=== PATIENT | male | born 1930 | race Caucasian/White ===

== ENCOUNTER 2016-08-01 10:23 | Outpatient (CLI) | payer MEDICARE ==
[2016-08-01 12:51] LABS: Blood, Urine Trace (Negative); Glucose, Urine (Dipstick) Negative (Negative); Ketone, Urine Negative (Negative); Nitrite Negative (Negative); Protein, Urine (Dipstick) Negative (Neg-Trace)
[2016-08-01 12:54] LABS: Bilirubin Small (Negative)
[2016-08-01 13:00] LABS: RBC/HPF 0-3 HPF (0-3); WBC/HPF None Seen HPF (0-3)
[2016-08-01 13:01] LABS: Bacteria/HPF Rare-Few HPF (None Seen)
[2016-08-01 13:34] LABS: ALT (SGPT) 10 U/L (0-55); AST (SGOT) 22 U/L (5-34); Alkaline Phosphatase 92 U/L (40-150); Anion Gap 15 mmol/L (10-20); BUN (Urea Nitrogen) 12 mg/dL (8.4-25.7); Bilirubin, Total 0.7 mg/dL (0.2-1.2); Calc. Creatinine Clearance 0 mL/min (70-130); Carbon Dioxide 27 mmol/L (23-31); Chloride 99 mmol/L (98-107); Estimated GFR-MDRD 62; Globulin 2.6 g/dL (2.4-3.5); LDL Cholesterol, Calculated 110 mg/dL; Protein, Total 6.3 g/dL (5.8-8.1)
== END 2016-08-01 10:24 | disposition home or self-care (01) ==
LOC: NAVSJIPCSP 10:23
PROVIDERS: ATTEND Internal Medicine
DX: I10 Essential (primary) hypertension (principal); I25.10 Atherosclerotic heart disease of native coronary artery without angina pectoris; E78.5 Hyperlipidemia, unspecified
CPT/HCPCS: 36415; 80053; 80061; 81003; 81015; 84443; G0103

== ENCOUNTER 2016-08-01 10:40 | Outpatient (CLI) | payer MEDICARE | END 2016-08-01 10:41 | disposition home or self-care (01) | LOC: NAV EKG 10:40 | PROVIDERS: ATTEND Internal Medicine | DX: I10 Essential (primary) hypertension (principal); I25.10 Atherosclerotic heart disease of native coronary artery without angina pectoris | CPT/HCPCS: 36415; 80053; 80061; 81003; 81015; 84443; 93005; G0103 ==

== ENCOUNTER 2016-10-02 18:52 | Inpatient (IN) | payer MEDICARE ==
[2016-10-02] MEDS ORDERED: Sodium Chloride 0.9% 1,000 ML ONE (19:44)
[2016-10-02 19:50] LABS: Lactic Acid - Sepsis 3.2 mmol/L (0.5-2.2)
[2016-10-02 19:51] LABS: ALT (SGPT) 15 U/L (0-55); AST (SGOT) 17 U/L (5-34); Alkaline Phosphatase 112 U/L (40-150); Anion Gap 18 mmol/L (10-20); BUN (Urea Nitrogen) 19 mg/dL (8.4-25.7); Bilirubin, Total 1.8 mg/dL (0.2-1.2); CK (CPK) 47 U/L (30-200); Calc. Creatinine Clearance 0 mL/min (70-130); Calcium 8.8 mg/dL (7.8-10.44); Carbon Dioxide 25 mmol/L (23-31); Chloride 90 mmol/L (98-107); Estimated GFR-MDRD 66; Globulin 3.2 g/dL (2.4-3.5); Protein, Total 6.6 g/dL (5.8-8.1)
[2016-10-02 19:57] LABS: Blood, Urine Trace (Negative); Glucose, Urine (Dipstick) Negative (Negative); Ketone, Urine Trace mg/dL (Negative); Nitrite Positive (Negative); Protein, Urine (Dipstick) 100 mg/dL (Neg-Trace)
[2016-10-02 20:02] LABS: Bilirubin Negative (Negative)
[2016-10-02 20:04] LABS: Bacteria/HPF 2+ HPF (None Seen); RBC/HPF 0-3 HPF (0-3); Squamous Epithelial None Seen HPF (0-3); WBC/HPF 0-3 HPF (0-3)
[2016-10-02 20:10] LABS: Band 3 % (5-11); Hematocrit 42.2 % (42.0-52.0); Mean Platelet Volume 7.2 fL (7.4-10.4); Neutrophil 71 % (42-75); Red Blood Cell (RBC) Count 4.64 mill/uL (4.70-6.10); White Blood Cell (WBC) Count 8.1 thou/uL (4.8-10.8)
[2016-10-02] MEDS ORDERED: Levofloxacin 500 mg/D5W 100 ml Premix Bag ONE (20:17)
--- NOTE | 2016-10-02 20:50 | RAD ---
EXAM: ONE VIEW CHEST 10/02/16 HISTORY: Weakness, stage IV kidney cancer. Patient has declined treatment and is now DNR. COMPARISON: 01/16/15. FINDINGS: Portable semiupright chest demonstrates sternotomy wires. There is slight elongation of the aorta. D iminished lung volumes, likely due to poor inspiratory effort. No masses or consolidation. No pneumo thorax or osseous abnormalities. Normal cardiac silhouette. IMPRESSION: No acute cardiopulmonary process. POS: CL[facility]ENCE
--- NOTE | 2016-10-02 20:57 | CT ---
CT OF THE HEAD 10/02/16 COMPARISON: None. HISTORY: Weakness, stage IV renal cell carcinoma. TECHNIQUE: Serial axial CT imaging at 5 mm intervals from vertex through skull base without contrast. Coronal a nd sagittal reformatted imaging obtained. FINDINGS: There is extensive encephalomalacia within the temporal lobe on the right suggesting prior right jere ed remote infarction. Evidence of remote infarction also noted at the vertex within the right fronta l lobe. There is extensive periventricular, deep, and subcortical white matter hypodensities suggesting modesto re small vessel disease. There is a focal hypodensity within the charissa on axial image 8 just to the right of midline measuring less than 1 cm in size, likely on the basis of age indeterminate ischemia. No intracranial hemorrha ge, midline shift, or mass effect is noted. There is mild polypoid mucosal thickening within the alveolar recess of the right maxillary sinus. N o displaced calvarial fracture. There is atherosclerotic calcification of the cavernous carotid aris pavan. 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 Hypodensity in the charissa suggests a ge indeterminate ischemia as well. No intracranial hemorrhage. If there is clinical concern for an a cute infarction, brain MRI is advised. Please note that detailed assessment for metastatic disease i s limited on noncontrast enhanced CT. POS: TL
--- NOTE | 2016-10-02 20:59 | RAD ---
EXAM: RIGHT SHOULDER FOUR VIEWS 10/02/16 HISTORY: Stage IV renal cancer. COMPARISON: None. FINDINGS: The visualized right ribs are unremarkable. There appear to be chronic degenerative changes of the r ight shoulder. No fracture or dislocation. IMPRESSION: Chronic degenerative changes. No fracture or dislocation. POS: CL[facility]ENCE
[2016-10-02] MEDS ORDERED: Sodium Chloride 0.9% 1,000 ML IV SCH (22:30)
[2016-10-02 22:59] VITALS: BMI 24.7
[2016-10-03] MEDS: Atenolol 25 MG TAB PO SCH (08:36)
[2016-10-03] MEDS: Isosorbide Dinitrate 10 MG TAB PO SCH (08:37)
[2016-10-03] MEDS: Aspirin 81 mg Enteric Coated Tablet PO SCH (08:37)
[2016-10-03] MEDS: Sodium Chloride 0.9% 1,000 ML IV SCH (08:43)
[2016-10-03] MEDS ORDERED: Atenolol 25 MG TAB PO SCH (09:00)
[2016-10-03] MEDS ORDERED: Isosorbide Dinitrate 10 MG TAB PO SCH (09:00)
[2016-10-03 11:49] LABS: Hematocrit 39.3 % (42.0-52.0); Mean Platelet Volume 6.5 fL (7.4-10.4); Red Blood Cell (RBC) Count 4.27 mill/uL (4.70-6.10)
[2016-10-03 11:50] LABS: #Basophils 0.1 thou/uL (0.0-0.2); #Eosinphils 0.1 thou/uL (0.0-0.7); #Lymphocytes 1.1 thou/uL (1.20-3.40); #Monocytes 0.8 thou/uL (0.11-0.59); #Neutrophils 7.9 thou/uL (1.40-6.50); %Basophils 0.8 % (0.0-1.0); %Eosinophils 1.1 % (0.0-10.0); %Lymphocytes 10.9 % (21.0-51.0); %Monocytes 8.2 % (0.0-10.0)
[2016-10-03 12:49] LABS: Anion Gap 15 mmol/L (10-20); BUN (Urea Nitrogen) 16 mg/dL (8.4-25.7); Calc. Creatinine Clearance 65 mL/min (70-130); Calcium 7.9 mg/dL (7.8-10.44); Carbon Dioxide 24 mmol/L (23-31); Chloride 94 mmol/L (98-107); Estimated GFR-MDRD 89
[2016-10-04] MEDS: Sodium Chloride 0.9% 1,000 ML IV SCH ×2 (01:17→04:37)
--- NOTE | 2016-10-04 05:54 | HP ---
DATE OF PLACEMENT TO THE OBSERVATION UNIT: 10/02/2016 HISTORY OF PRESENT ILLNESS: The patient is a very pleasant 86-year-old white male with a long histo ry of multiple medical problems including diffuse coronary artery disease, peripheral vascular disea se, status post coronary bypass graft x3 in 1988, right carotid stent in 2010, has continued to have significant chest pain, control with Isordil. He also had a history of cancer of the bladder in 16 03, status post transurethral bladder resection and prostatectomy with persistent disease. He has b een living alone at home. This progressed to become weaker, has had decreasing appetite, oral intak e and was subsequently found at home with too weak to get out of bed despite being a do not resuscit ate and adamantly refusing therapy. He was taken to the emergency room, found to have no evidence o f sepsis. No evidence of significant trauma to his head, but was dehydrated, having some hematuria and was placed in the observation dos [facility] for IV fluids. His initial lactate was elevated to 3.2, but this improved quickly to 1.9 with IV fluids and has remained there. Urinalysis did show positive ni trite, but no white cells seen. Serum white count was normal as mentioned above. Vital signs showe d him to have elevated blood pressure; however, he refused to eat. States he did not want eat any f urther even though he was awake and alert. Stated that he wishes to be placed on hospice. PHYSICAL EXAMINATION: VITAL SIGNS: Initially showed him to have blood pressure of 126/51, O2 sats 98%, respirations 23, p ulse 75, afebrile. HEENT: Pupils are equal, round, and react to light and accommodation. Sclerae are pale. Conjuncti vae are pale. Oral mucous membranes well hydrated. NECK: Supple. There are no nodes or masses. JVP is not elevated. LUNGS: Clear. CARDIAC: Showed regular rhythm. No gallops or murmurs. ABDOMEN: Soft, nontender. SKIN/EXTREMITIES: Display decreased skin turgor, decreased pedal pulses. No ulcers or decubitus. NEUROLOGIC: Shows no focal findings. LABORATORY DATA: As mentioned above show him to have white count 8100, hematocrit 42, hemoglobin 14 . Sodium was 129, potassium 3.6, chloride 90, bicarbonate 25, BUN 19, creatinine 1.06, glucose 153, calcium 8.8, total bilirubin 1.8, albumin 3.4, globulin 3.2. Urinalysis shows the above-mentioned positive nitrite, but no white cells or red cells. ASSESSMENT: An 86-year-old white male with diffuse coronary artery disease, peripheral vascular dis ease and history of probable recurrent cancer of the bladder who has refused to eat, has become very weak, unable to maintain ADLs and stay in his assisted living. He states he wished to be placed on hospice. He is alert and oriented and is competent and does not want to be resuscitated and does n ot want any further therapy. PLAN: Consult [facility] for possible admission and transfer to [facility] care.
[2016-10-04] MEDS: Enoxaparin Sodium 30 MG/0.3 ML SYRINGE SC SCH (06:02)
[2016-10-04] MEDS: Isosorbide Dinitrate 10 MG TAB PO SCH (08:52)
[2016-10-04] MEDS: Atenolol 25 MG TAB PO SCH (08:52)
[2016-10-04] MEDS: Aspirin 81 mg Enteric Coated Tablet PO SCH (08:52)
--- NOTE | 2016-10-05 00:54 | PRG ---
DATE OF SERVICE: 10/04/2016 SUBJECTIVE: The patient lying in bed, resting. No complaints. Not eating well. No shortness of b reath or chest pain. IV has been removed. OBJECTIVE: VITAL SIGNS: Show blood pressure 146/66, pulse 72, afebrile, O2 sats 98%. GENERAL: The patient has been accepted to [facility] to [facility] and will be transferred in the morning. LUNGS: Clear. CARDIAC: Shows regular rhythm. ABDOMEN: Soft and nontender. ASSESSMENT: Stable ischemic cardiomyopathy and increasing failure to thrive. PLAN: Transfer to [facility] on hospice in the a.m.
[2016-10-05] MEDS: Enoxaparin Sodium 30 MG/0.3 ML SYRINGE SC SCH (05:40)
[2016-10-05 07:14] VITALS: BP 147/67; TEMP 97.7
[2016-10-05] MEDS: Aspirin 81 mg Enteric Coated Tablet PO SCH (08:57)
[2016-10-05] MEDS: Atenolol 25 MG TAB PO SCH (08:57)
[2016-10-05] MEDS: Isosorbide Dinitrate 10 MG TAB PO SCH (08:57)
--- NOTE | 2016-10-05 18:37 | DIS ---
DATE OF ADMISSION: 10/02/2016 DATE OF TRANSFER: To [facility] on 10/06/2016. FINAL DIAGNOSES: 1. Failure to thrive. 2. Ischemic cardiomyopathy. 3. Cancer of the bladder. HOSPITAL COURSE: The patient is an 86-year-old white male well known to myself with a long history of ischemic cardiomyopathy, peripheral vascular disease, and cancer of the bladder, who has had grad ual progression in his weakness, anorexia with no shortness of breath or chest pain. He has remaine d alert, lucid and has elected to be placed on hospice as he does not wish to have a feeding tube an d further evaluation of his anorexia or poor oral intake. He has lost a significant amount of weigh t and understands that this is a pre-terminal event if he does not eat. His vital signs showed bloo d pressure 126/51, white count was 8100, hematocrit 42, hemoglobin 14, BUN is 19, creatinine is 1.06 . Sodium was 129, calcium 8.8, total bilirubin 1.8. Urinalysis showed positive nitrite. Abdomen w as soft, minimally tender. Lungs were clear. Cardiac examination shows regular rhythm. The patien t was monitored for several days, refused to eat, refused IV fluids and refused further evaluation, did consent to hospice and therefore [facility] the [facility] and he will be tr ansferred to [facility] for palliative care.
== END 2016-10-05 11:35 | DRG 948 ==
LOC: NAV ERS 18:52 → NAV ACUTE 21:17
PROVIDERS: ADMIT Internal Medicine; ATTEND Internal Medicine
DX: R53.1 Weakness (principal); I25.5 Ischemic cardiomyopathy; C67.9 Malignant neoplasm of bladder, unspecified; I73.9 Peripheral vascular disease, unspecified; I25.10 Atherosclerotic heart disease of native coronary artery without angina pectoris; Z51.5 Encounter for palliative care; R62.7 Adult failure to thrive; Z66 Do not resuscitate; Z95.1 Presence of aortocoronary bypass graft; E78.5 Hyperlipidemia, unspecified
CPT/HCPCS: 70450; 71010; 80048; 80053; 81003; 81015; 82553; 83605; 84484; 85025; 87086; 96365; A4216; J1650; J1956; J7050